=== PATIENT | male | born 1980 | race Hispanic/Latino ===

== ENCOUNTER 2016-11-11 06:14 | Emergency (ER) | payer SELFPAY ==
[~2016-11-11] VITALS: Ht 167.6 cm; Wt 99.6 kg
[2016-11-11] MEDS ORDERED: MOTRIN800 MG PO (06:37)
[2016-11-11 08:16] VITALS: BP 102/59
== END 2016-11-11 08:17 | disposition home or self-care (01) ==
LOC: EME 06:14
DX: M94.0 Chondrocostal junction syndrome [Tietze] (principal)
CPT/HCPCS: 71020; 93005; 99281; 99283; J1885

== ENCOUNTER 2017-02-03 17:22 | Emergency (ER) | payer BC ==
[~2017-02-03] VITALS: Ht 167.6 cm; Wt 98.0 kg
[~2017-02-03 17:22] MED LIST: MOTRIN800 MG PO
[2017-02-03 17:54] LABS: HEMATOCRIT 44.1 % (38.0-50.0); MCH 29.3 PG (29.0-34.0); MCHC 33.1 G/DL (30.0-36.0); MCV 88.4 FL (86-99); MEAN PLAT.VOLUME 9.6 uM^3 (9.0-12.4); PLATELET COUNT 461 K/uL (156-360); RBC DIS.WIDTH-CV 12.3 % (11.8-14.6); RBC DIS.WIDTH-SD 40.4 % (39-53); RED BLOOD COUNT 4.99 M/uL (4.00-5.50); WHITE BLOOD COUNT 9.7 K/uL (4.1-10.2)
[2017-02-03 18:03] LABS: CHLORIDE 104 mEq/L (99-109); SODIUM 140 mEq/L (136-147)
[2017-02-03 18:05] LABS: GLUCOSE 106 mg/dL (70-99)
[2017-02-03 18:06] LABS: ANION GAP 10 MEQ/L (2-14)
[2017-02-03 18:07] LABS: TOTAL BILIRUBIN 0.4 mg/dL (0.0-1.0)
[2017-02-03 18:08] LABS: ALKALINE PHOSPHATASE 87 IU/L (3-129)
[2017-02-03 18:09] LABS: GFR ESTIMATE (CALCULATED) > 59 mL/min/
[2017-02-03 18:10] LABS: UREA NITROGEN (BUN) 15 mg/dL (9-23)
[2017-02-03 18:12] LABS: LIPASE 39 U/L (1.0-51.0)
[2017-02-03 18:14] LABS: TROP-I INTERPRETATION NEGATIVE; TROPONIN-I < 0.01 ng/mL (0.0-0.30)
[2017-02-03 19:01] LABS: ADD MIUA? NO; BILIRUBIN NEGATIVE; BLOOD NEGATIVE; COLOR YELLOW ((YELLOW)); GLUCOSE (STRIP) NEGATIVE; KETONES NEGATIVE; LEUKOCYTES NEGATIVE; NITRITE NEGATIVE; PROTEIN (STRIP) NEGATIVE; SPECIFIC GRAVITY 1.024 (1.000-1.030); UROBILINOGEN 0.2 MG/DL (0.2-1.0)
[2017-02-03 20:15] VITALS: BP 138/85
[2017-02-08] MEDS ORDERED: MOTRIN800 MG PO (11:38)
== END 2017-02-03 20:15 | disposition home or self-care (01) ==
LOC: EME 17:22
PROVIDERS: Nurse Practitioner Family
DX: R07.81 Pleurodynia (principal); R10.11 Right upper quadrant pain; R79.1 Abnormal coagulation profile; C78.7 Secondary malignant neoplasm of liver and intrahepatic bile duct; C79.51 Secondary malignant neoplasm of bone; C77.5 Secondary and unspecified malignant neoplasm of intrapelvic lymph nodes; R00.0 Tachycardia, unspecified; R51 Headache
CPT/HCPCS: 71020; 71275; 80053; 81003; 83690; 84484; 85027; 93005; 99281; 99285; J7030

== ENCOUNTER → 2017-02-09 | Outpatient (CLI) | payer BC ==
[~2017-02-09] VITALS: Ht 167.6 cm; Wt 95.3 kg
== END | disposition home or self-care (01) ==
LOC: OPR 11:43 → EDSTATUS 12:00
DX: C78.7 Secondary malignant neoplasm of liver and intrahepatic bile duct (principal)
CPT/HCPCS: 77012; 88108; 88305; 88307; 88341 TC; 88342 TC; J3010

== ENCOUNTER 2017-10-12 15:16 | Emergency (ER) | payer BC ==
[~2017-10-12] VITALS: Ht 167.6 cm; Wt 80.6 kg
[~2017-10-12 15:16] MED LIST changes: +ALEVE220 M2 PO
[2017-10-12 16:29] LABS: HEMATOCRIT 45.1 % (38.0-50.0); HEMOGLOBIN 15.7 G/DL (12.5-16.6); MCH 31.2 PG (29.0-34.0); MCHC 34.8 G/DL (30.0-36.0); MCV 89.5 FL (86-99); PLATELET COUNT 289 K/uL (156-360); RBC DIS.WIDTH-CV 12.8 % (11.8-14.6); RBC DIS.WIDTH-SD 42.3 % (39-53); RED BLOOD COUNT 5.04 M/uL (4.00-5.50); WHITE BLOOD COUNT 16.9 K/uL (4.1-10.2)
[2017-10-12 16:42] LABS: ALBUMIN 4.4 g/dL (3.2-4.8); CHLORIDE 109 mEq/L (99-109); POTASSIUM 3.5 mEq/L (3.7-5.4); SODIUM 142 mEq/L (136-147)
[2017-10-12 16:44] LABS: GLUCOSE 145 mg/dL (70-99); TOTAL PROTEIN 7.1 g/dL (6.4-8.3)
[2017-10-12 16:46] LABS: TOTAL BILIRUBIN 0.8 mg/dL (0.0-1.0)
[2017-10-12 16:48] LABS: ALKALINE PHOSPHATASE 105 IU/L (3-129); CREATININE 1.1 mg/dL (0.6-1.3); GFR ESTIMATE (CALCULATED) > 59 mL/min/ (58.99-99999)
[2017-10-12 16:49] LABS: AST (GOT) 24 IU/L (2-34); UREA NITROGEN (BUN) 18 mg/dL (9-23)
[2017-10-12 16:51] LABS: ALT (GPT) 35 IU/L (3-49); LIPASE 40 U/L (1.0-51.0)
[2017-10-12] MEDS ORDERED: MIRALAX17 GM PO (18:12)
[2017-10-12] MEDS ORDERED: FLEET ENEMA-AD118 ML PR (18:12)
[2017-10-12] MEDS ORDERED: MAGNESIUM CITR296 M1 PO (18:12)
[2017-10-12 19:44] VITALS: BP 117/56
== END 2017-10-12 19:44 | disposition home or self-care (01) ==
LOC: EME 15:16
PROVIDERS: Physician Assistant
DX: K59.00 Constipation, unspecified (principal); R10.9 Unspecified abdominal pain; Z85.05 Personal history of malignant neoplasm of liver
CPT/HCPCS: 74177; 80053; 81003; 83690; 85027; 99281; 99285; J2405; J3010; J7040